=== PATIENT | female | born 1975 | race Caucasian/White ===

== ENCOUNTER 2018-09-13 18:25 | Emergency (ER) | payer MEDICAID ==
[~2018-09-13] VITALS: Ht 167.6 cm; Wt 73.5 kg
[2018-09-13 18:35] VITALS: BP 127/74
[2018-09-13] MEDS ORDERED: AZIT250T PO (19:09)
[2018-09-13] MEDS ORDERED: GUAI-647 PO (19:09)
[2018-09-13] MEDS ORDERED: ALBU6.7H INH (19:09)
[2018-09-13] MEDS ORDERED: PRED20TA PO (19:09)
== END 2018-09-13 19:25 | disposition home or self-care (01) ==
LOC: ER 18:26
DX: J20.9 Acute bronchitis, unspecified (principal); F17.200 Nicotine dependence, unspecified, uncomplicated
CPT/HCPCS: 71045; 99283

== ENCOUNTER 2024-01-09 12:20 | Emergency (ER) | payer MEDICARE, MEDICAID ==
[~2024-01-09] VITALS: Ht 167.6 cm; Wt 82.1 kg
[~2024-01-09 12:20] MED LIST: ALBU6.7H14 INH; AZIT250T PO
[2024-01-09 13:17] LABS: BASOPHILS % (AUTO) 0.7 % (0-1); EOSINOPHILS # (AUTO) 0.2 X10'3 (0-0.9); EOSINOPHILS % (AUTO) 2.9 % (0-6); HEMATOCRIT 44.9 % (35.0-45.0); HEMOGLOBIN 14.9 g/dl (12.0-16.0); LYMPHOCYTES % (AUTO) 34.8 % (21-51); MEAN CORPUSCULAR HEMOGLOBIN 30.1 PG (27.0-31.0); MEAN CORPUSCULAR HGB CONC 33.3 g/dL (33.0-36.5); MEAN CORPUSCULAR VOLUME 90.5 FL (78-98); MEAN PLATELET VOLUME 7.5 FL (7.4-10.4); MONOCYTES # (AUTO) 0.5 X10'3 (0-0.9); MONOCYTES % (AUTO) 8.3 % (2-12); NEUTROPHILS % (AUTO) 53.3 % (42-75); PLATELET COUNT 359 X10'3 (140-440); RED BLOOD COUNT 4.96 X10'6 (4.20-5.60); RED CELL DISTRIBUTION WIDTH 14.1 % (11.5-14.5); WHITE BLOOD COUNT 5.6 X10'3 (4.5-11.0)
[2024-01-09] MEDS: meclizine 12.5mg tablet PO ONE (13:18)
[2024-01-09] MEDS ORDERED: CITA40TA PO (13:19)
[2024-01-09 13:31] LABS: ALANINE AMINOTRANSFERASE 28 U/L (12-78); ALBUMIN 3.8 G/DL (3.4-5.0); ALBUMIN/GLOBULIN RATIO 1.1 (1.1-1.5); ALKALINE PHOSPHATASE 64 IU/L (46-116); ANION GAP 10 (8-16); ASPARTATE AMINO TRANSFERASE 16 U/L (10-37); BILIRUBIN,TOTAL 0.5 MG/DL (0.1-1.0); BLOOD UREA NITROGEN 23 MG/DL (7-18); BUN/CREATININE RATIO 25.3 (10.0-20.0); CALCIUM 9.5 MG/DL (8.5-10.1); CHLORIDE 107 MMOL/L (99-107); CREATININE 0.91 MG/DL (0.40-0.90); GLUCOSE 98 MG/DL (70-104); POTASSIUM 4.2 MMOL/L (3.5-5.1); SODIUM 142 MMOL/L (135-145); TOTAL CARBON DIOXIDE 24.6 MMOL/L (24-32); TOTAL PROTEIN 7.3 G/DL (6.4-8.2); eCRCL 72 ML/MIN; eGFR 66 ML/MIN
[2024-01-09] MEDS ORDERED: MECL-302 PO (13:37)
[2024-01-09 13:47] VITALS: BP 125/72; PULSE 54; RESP 12; TEMP 98.4; O2SAT 94
== END 2024-01-09 13:56 | disposition home or self-care (01) ==
LOC: ER 12:21
DX: R42 Dizziness and giddiness (principal); R11.0 Nausea; H55.09 Other forms of nystagmus; Z79.899 Other long term (current) drug therapy
CPT/HCPCS: 36415; 80053; 85025; 99283; J8597

== ENCOUNTER 2024-10-08 05:00 | Emergency (ER) | payer MEDICARE, MEDICAID ==
[~2024-10-08] VITALS: Ht 167.6 cm; Wt 90.9 kg
[~2024-10-08 05:00] MED LIST changes: -ALBU6.7H14 INH; -AZIT250T PO; +CITA40TA PO; +MECL-302 PO
[2024-10-08] MEDS: LIDOcaine 1% W/epiNEPHrine 1:100,000 20ml vial IJ ONE (07:09)
[2024-10-08 07:20] LABS: BASOPHILS # (AUTO) 0.1 X10'3 (0-0.2); BASOPHILS % (AUTO) 0.9 % (0-1); EOSINOPHILS # (AUTO) 0.5 X10'3 (0-0.9); EOSINOPHILS % (AUTO) 6.3 % (0-6); HEMATOCRIT 33.8 % (35.0-45.0); HEMOGLOBIN 11.2 g/dl (12.0-16.0); LYMPHOCYTES # (AUTO) 1.5 X10'3 (1.1-4.8); LYMPHOCYTES % (AUTO) 20.6 % (21-51); MEAN CORPUSCULAR HEMOGLOBIN 29.6 PG (27.0-31.0); MEAN CORPUSCULAR HGB CONC 33.2 g/dL (33.0-36.5); MEAN CORPUSCULAR VOLUME 89.2 FL (78-98); MEAN PLATELET VOLUME 7.2 FL (7.4-10.4); MONOCYTES # (AUTO) 0.6 X10'3 (0-0.9); MONOCYTES % (AUTO) 7.9 % (2-12); NEUTROPHILS # (AUTO) 4.6 X10'3 (1.8-7.7); NEUTROPHILS % (AUTO) 64.3 % (42-75); PLATELET COUNT 267 X10'3 (140-440); RED BLOOD COUNT 3.79 X10'6 (4.20-5.60); RED CELL DISTRIBUTION WIDTH 14.3 % (11.5-14.5); WHITE BLOOD COUNT 7.1 X10'3 (4.5-11.0)
[2024-10-08] MEDS: LIDOcaine 1% W/epiNEPHrine 1:100,000 20ml vial SQ ONE (07:20)
[2024-10-08 07:24] LABS: ALANINE AMINOTRANSFERASE 13 U/L (12-78); ALBUMIN/GLOBULIN RATIO 0.7 (1.1-1.5); ALKALINE PHOSPHATASE 62 IU/L (46-116); ANION GAP 10 (8-16); ASPARTATE AMINO TRANSFERASE 7 U/L (10-37); BILIRUBIN,TOTAL 0.1 MG/DL (0.1-1.0); BLOOD UREA NITROGEN 14 MG/DL (7-18); BUN/CREATININE RATIO 29.2 (10.0-20.0); CALCIUM 6.4 MG/DL (8.5-10.1); CHLORIDE 118 MMOL/L (99-107); CREATININE 0.48 MG/DL (0.40-0.90); GLUCOSE 81 MG/DL (70-104); SODIUM 147 MMOL/L (135-145); TOTAL CARBON DIOXIDE 18.6 MMOL/L (24-32); TOTAL PROTEIN 4.7 G/DL (6.4-8.2); eCRCL 134 ML/MIN; eGFR > 90 ML/MIN
[2024-10-08 07:28] LABS: POTASSIUM 2.7 MMOL/L (3.5-5.1)
[2024-10-08] MEDS: CefTRIAXone 2gm/D5W 50ml BAG 50 ML IV ONE (08:19)
[2024-10-08 08:24] LABS: MAGNESIUM 1.4 MG/DL (1.5-2.4)
[2024-10-08] MEDS: bacitracin 15gm ointment TP ONE (08:29)
[2024-10-08] MEDS: potassium Cl 20 mEq SR tablet PO STA (08:29)
[2024-10-08] MEDS: Potassium Cl inj 20 MEQ in normal saline 1000ml 990 ML IV ONE (08:30)
[2024-10-08] MEDS: metroNIDAZOLE-Flagyl 500mg/NS 100 ML IV STA (08:41)
[2024-10-08] MEDS ORDERED: AMOX-580 PO (10:24)
[2024-10-08] MEDS ORDERED: METR-159 PO (10:24)
[2024-10-08] MEDS ORDERED: HYDR-3972 PO (10:24)
[2024-10-08] MEDS: magnesium sulf-water 4G/100mL 100 ML IV ONE (10:30)
[2024-10-08] MEDS: potassium bicarbonate/cit acid 25mEq tablet.effervescent PO ONE (10:39)
[2024-10-08 11:16] LABS: ANION GAP 8 (8-16); BLOOD UREA NITROGEN 16 MG/DL (7-18); BUN/CREATININE RATIO 20.8 (10.0-20.0); CALCIUM 8.7 MG/DL (8.5-10.1); CHLORIDE 108 MMOL/L (99-107); CREATININE 0.77 MG/DL (0.40-0.90); GLUCOSE 176 MG/DL (70-104); POTASSIUM 4.9 MMOL/L (3.5-5.1); SODIUM 142 MMOL/L (135-145); TOTAL CARBON DIOXIDE 26.4 MMOL/L (24-32); eCRCL 84 ML/MIN; eGFR 80 ML/MIN
[2024-10-08 11:43] VITALS: BP 133/79; PULSE 88; RESP 17; TEMP 97.9; O2SAT 95
[2024-10-08 11:47] LABS: THYROID STIMULATING HORMONE 0.29 ulU/ml (0.34-4.50)
== END 2024-10-08 11:47 | disposition home or self-care (01) ==
LOC: ER 05:01
DX: L02.215 Cutaneous abscess of perineum (principal); F17.200 Nicotine dependence, unspecified, uncomplicated; E87.6 Hypokalemia; E86.0 Dehydration; E83.42 Hypomagnesemia; Z79.899 Other long term (current) drug therapy
CPT/HCPCS: 36415; 56405; 80048; 80053; 82977; 83735; 84443; 85025; 96365; 96366; 96368; 99285; A6213; A6223; A6258; A6402; J0696; J3475; J3480; J3490; J7030; Z7610; 96367; A6266; A6449

== ENCOUNTER 2024-10-10 06:22 | Emergency (ER) | payer MEDICARE, MEDICAID ==
[~2024-10-10] VITALS: Ht 165.1 cm; Wt 90.0 kg
[~2024-10-10 06:22] MED LIST changes: +AMOX-580 PO; +HYDR-3972 PO; +METR-159 PO
[2024-10-10 06:23] VITALS: BP 148/80; PULSE 83; RESP 16; TEMP 98.2; O2SAT 95
== END 2024-10-10 07:41 | disposition home or self-care (01) ==
LOC: ER 06:23
DX: S30.9 Unspecified superficial injury of abdomen, lower back, pelvis and external genitals (principal); Z79.899 Other long term (current) drug therapy; X58.XXXD Exposure to other specified factors, subsequent encounter
CPT/HCPCS: 99281; 99282

== ENCOUNTER 2024-10-16 14:37 | Emergency (ER) | payer MEDICARE, MEDICAID ==
[~2024-10-16] VITALS: Ht 165.1 cm; Wt 89.7 kg
[2024-10-16 14:44] VITALS: TEMP 98.3
[2024-10-16] MEDS ORDERED: ketorolac trometh 15mg/ml vial 15 MG/ML ML IV ONE (16:30)
[2024-10-16] MEDS ORDERED: OLANZapine **IM** 10 mg inj. IM ONE (16:30)
[2024-10-16 16:31] VITALS: BP 131/89; PULSE 77; RESP 14; O2SAT 97
== END 2024-10-16 16:31 | disposition home or self-care (01) ==
LOC: ER 14:38
DX: L02.215 Cutaneous abscess of perineum (principal); Z48.00 Encounter for change or removal of nonsurgical wound dressing
CPT/HCPCS: 99281; A6266; Z7610